=== PATIENT | female | born 1940 | race Caucasian/White ===

== ENCOUNTER → 2017-08-12 11:59 | Outpatient (CLI) | payer MEDICARE, SELFPAY ==
--- NOTE | 2017-08-12 13:41 | NEURO ---
NCS and/or EMG Patient Report Ordering Doctor: Russel Murphy DATE OF SERVICE: 08/12/17 Alyson Crespo is a 77-year-old female presents with chief complaint of burning and tingling around the left ankle. She has a history of left ankle surgery. She refuses testing in the right lower limb, despite it being ordered. She states she is largely asymptomatic on the right side. Electrodiagnostic findings: Left common peroneal nerve demonstrates normal distal latency, amplitude and conduction velocity. Normal left tibial motor response. Normal tibial and peroneal F-wave. H reflex mildly prolonged on the left side. Needle EMG testing reveals no evidence of denervation with normal motor unit action potentials. Electrodiagnostic impression: This is a normal electrodiagnostic study of the left lower limb. No electrodiagnostic evidence for peripheral neuropathy, including tarsal tunnel syndrome. There is no electrodiagnostic evidence for lumbar radiculopathy. If there are any further questions, please do not hesitate to contact me.
== END ==
PROVIDERS: Family Provider Preventive Medicine Occupational Medicine; PCP Preventive Medicine Occupational Medicine; Visit Provider Podiatrist
DX: M79.2 Neuralgia and neuritis, unspecified (principal); M19.072 Primary osteoarthritis, left ankle and foot; M19.071 Primary osteoarthritis, right ankle and foot; M79.672 Pain in left foot
CPT/HCPCS: 95886; 95910

== ENCOUNTER 2018-08-29 21:26 | Emergency (ER) | payer MEDICARE, SELFPAY ==
[2018-08-29 21:26] VITALS: BP 165/100; PULSE 114; RESP 16; TEMP 36.6; O2SAT 98; BMI 31.1
--- NOTE | 2018-08-29 21:53 | ED.VISSUMM ---
- ER Visit Summary Date of Service: 08/29/18 Chief Complaint: Left upper extremity bruising History of Present Illness: The patient is a 78 F who initially noted pain and bruising to her left hand several weeks ago. She was seen by orthopedic hand, but the time she had her appointment to the pain and bruising had resolved. She then developed bruising to her left upper extremity along the upper arm. She was seen by her primary care physician. Labs were obtained and platelet count was normal. She was sent for an ultrasound of her arm but she does not know the results. Patient reports increased bruising and soreness up near her shoulder tonight. She was concerned about a blood clot that was spreading closer to her chest. She denies paresthesias or weakness of her arm. She does have increased pain with certain movements. She denies any known trauma. Physical Examination: Blood pressure on arrival is 165/100, otherwise vitals normal. Patient sitting upright in bed no acute distress. She is alert and talkative. Head and neck examination is normal. Heart is regular rate and rhythm. Lungs sounds are clear. Abdomen is soft and nontender. Left upper extremity examination reveals ecchymosis in a bandlike pattern around the upper arm. There is another area of ecchymosis along the dependent portion of the elbow. She does have muscular tenderness over the upper arm. She has full range of motion. She is strong distal pulses and normal sensation. There is no significant edema. Test Results: [] Emergency Department Course and Treatment: She was rapidly questioned about any trauma or blood pressure cuff that may been placed on that arm. She denies that. I was able to review [facility] records. Patient's hemoglobin was 14.1 and platelet count was 259,000 just 2 days ago. Ultrasound was obtained but was a soft tissue ultrasound of the area of interest. This revealed no evidence of focal fluid collection. I do not see a vascular ultrasound to be performed. Test results were discussed with patient and family. We will write her to come back tomorrow for a vascular ultrasound of the left upper extremity. Javier wrap was applied to the left upper arm. Treatment Plan: [] Disposition: Discharge Impression: Left upper extremity ecchymosis This note was generated with [employer] dictation software. It may contain incorrect words, spelling, and punctuation that were not noted in review of the chart prior to signing ED Disposition - Plan for ED Patient: Disposition: Home or Assisted Living Instructions: ED Contusion Upper Ext Referrals: Matteo Baker DO [Primary Care Provider] - Additional Instructions: You will be called tomorrow morning to come in for a vascular ultrasound of your arm to ensure there are no blood clots in the blood vessels.
[2018-08-29 22:01] VITALS: BP 121/73; PULSE 105; RESP 16; O2SAT 94
== END 2018-08-29 22:18 | disposition home or self-care (01) ==
LOC: ED 22:02
PROVIDERS: Emergency Provider Emergency Medicine; Family Provider Preventive Medicine Occupational Medicine; PCP Preventive Medicine Occupational Medicine
DX: S40.022A Contusion of left upper arm, initial encounter (principal); X58.XXXA Exposure to other specified factors, initial encounter; Y93.9 Activity, unspecified; Y92.9 Unspecified place or not applicable; I10 Essential (primary) hypertension; E03.9 Hypothyroidism, unspecified; Z79.899 Other long term (current) drug therapy
CPT/HCPCS: 99282

== ENCOUNTER → 2018-08-30 11:16 | Outpatient (CLI) | payer MEDICARE, SELFPAY ==
[2018-08-29 21:26] VITALS: BMI 31.1
--- NOTE | 2018-08-30 11:21 | VDUE_ITS ---
Reason For Study: LUE ecchymosis Left Proximal Left jugular vein is spontaneous, widely patent, phasic, with no intraluminal echogenicity noted. Left subclavian vein is spontaneous, widely patent, phasic, with no intraluminal echogenicity noted. Left Arm Left axillary vein is spontaneous, patent, phasic, competent, compressible and demonstrates augmentation. Left brachial vein is compressible. Left cephalic vein is compressible. Left basilic vein is compressible. Left Lower Arm Left radial vein is compressible. Left ulnar vein is compressible. Interpretation Summary No evidence for acute deep venous thrombosis[left] upper extremity with patent and compressible cephalic and basilic veins. Ordering Physician: Rashida Chen Referring Physician: MD Matteo Baker Performed By: Maida Last RVT ?
== END ==
PROVIDERS: Family Provider Preventive Medicine Occupational Medicine; PCP Preventive Medicine Occupational Medicine; Referring Provider Emergency Medicine; Visit Provider Emergency Medicine
DX: S40.022A Contusion of left upper arm, initial encounter (principal); M79.89 Other specified soft tissue disorders
CPT/HCPCS: 93971

== ENCOUNTER 2021-07-10 18:22 | Outpatient (CLI) | payer MEDICARE, SELFPAY ==
[2021-07-10 18:31] VITALS: BP 142/91; PULSE 102; RESP 16; TEMP 36.6; O2SAT 100; BMI 29.2
[2021-07-10] MEDS: 0.9% Saline Lock 10 ML Syringe IV (18:35)
[2021-07-10 19:37] VITALS: BP 140/75; PULSE 77; RESP 16; TEMP 36.9; O2SAT 98
[2021-07-10 20:22] VITALS: BP 169/83; PULSE 79; RESP 16; TEMP 36.9; O2SAT 100
== END 2021-07-10 20:38 | disposition home or self-care (01) ==
LOC: MS3OUT 18:22 → MS3 18:24
PROVIDERS: PCP Preventive Medicine Occupational Medicine; Referring Provider Nurse Practitioner Adult Health; Visit Provider Nurse Practitioner Adult Health
DX: Z23 Encounter for immunization (principal); U07.1 COVID-19
CPT/HCPCS: J7050; M0245; Q0245; A4216

== ENCOUNTER → 2022-01-02 | Outpatient (CLI) | payer MEDICARE, SELFPAY ==
--- NOTE | 2022-01-02 10:38 | ECHOD_ITS ---
Reason For Study: VALVULAR HEART DISEASE Procedure This was a 2D Doppler, Color Flow transthoracic echocardiogram. The exam was of adequate technical quality. Exam performed in department. Left Ventricle Normal LV size. Left ventricular systolic function is normal. The estimated ejection fraction is 65 %. No evidence for diastolic dysfunction. No regional wall motion abnormalities noted. Right Ventricle Normal RV size. Normal systolic function. Atria Normal left atrium. Normal right atrium. No doppler evidence for ASD. Mitral Valve There is no mitral annular calcification. Mild focal mitral valve calcification, bileaflet. Mild (1+) mitral valve insufficiency. Tricuspid Valve Normal tricuspid valve. Mild tricuspid valve insufficiency. Right ventricular systolic pressure estimated to be 29 mmHg. Aortic Valve Trisinus/trileaflet aortic valve. Mild focal aortic valve thickening. Trivial aortic valve insufficiency. Pulmonic Valve The pulmonic valve is not well visualized. Great Vessels Normal sized aortic root. Pericardium/Pleural No pericardial effusion. MMode/2D Measurements & Calculations LVIDd: 3.8 cm IVSd: 0.84 cm Ao root diam: 3.1 cm LVIDs: 2.6 cm LVPWd: 0.90 cm RVDd: 2.7 cm FS: 31.1 % LAV(MOD-bp): 30.1 ml LVAd ap4: 21.5 cm2 SV(MOD-sp4): 29.8 ml LAV(MOD-bp) Indexed: 16.7 ml/m2 LVLd ap4: 7.0 cm LAV(MOD-sp2): 28.6 ml EDV(MOD-sp4): 54.2 ml LAV(MOD-sp4): 29.3 ml EDV(sp4-el): 55.7 ml LVAs ap4: 12.6 cm2 LVLs ap4: 5.9 cm ESV(MOD-sp4): 24.4 ml ESV(sp4-el): 23.0 ml EF(MOD-sp4): 55.0 % EF(sp4-el): 58.7 % SV(sp4-el): 32.7 ml LA A4 area: 13.4 cm2 LA dimension(2D): 3.0 cm RA A4 area: 11.1 cm2 Time Measurements MV dec time: 0.27 sec Doppler Measurements & Calculations MV E max cesar: 52.2 cm/sec Lat Peak E' Cesar: 5.7 cm/sec Med Peak E' Cesar: 5.4 cm/sec MV A max cesar: 89.5 cm/sec E/E' lat: 9.2 E/E' med: 9.7 MV E/A: 0.58 Ao V2 max: 125.6 cm/sec AI max cesar: 432.8 cm/sec LV V1 max: 78.8 cm/sec Ao max P.3 mmHg AI max P.9 mmHg LV V1 max P.5 mmHg AI dec slope: 298.9 cm/sec2 AI P1/2t: 424.0 msec PA V2 max: 99.9 cm/sec TR max cesar: 255.3 cm/sec TR max P.1 mmHg ECHO/Echo Complete Interpretation Summary Left ventricular systolic function is normal. The estimated ejection fraction is 65 %. Mild focal mitral valve calcification, bileaflet. Mild (1+) mitral valve insufficiency. Mild tricuspid valve insufficiency. Mild focal aortic valve thickening. Trivial aortic valve insufficiency. Right ventricular systolic pressure estimated to be 29 mmHg. No evidence for diastolic dysfunction. Ordering Physician: Alessandra Epstein Referring Physician: SHERLY LENTZ Performed By: Isi Schmidt RDCS
== END | disposition home or self-care (01) ==
PROVIDERS: PCP Preventive Medicine Occupational Medicine; Referring Provider Nurse Practitioner Gerontology; Visit Provider Nurse Practitioner Gerontology
DX: I34.0 Nonrheumatic mitral (valve) insufficiency (principal)
CPT/HCPCS: 93306

== ENCOUNTER → 2023-01-21 | Outpatient (CLI) | payer MEDICARE, SELFPAY ==
--- NOTE | 2023-01-21 11:04 | STRESSREP ---
Stress Test Report Pharmacologic myocardial perfusion stress test. 83-year-old lady for preoperative evaluation Resting EKG demonstrates sinus rhythm with a rate of 73 bpm. Resting blood pressure is 130/72 mmHg. 0.4 mg of regadenoson was infused per usual protocol followed by rapid intravenous saline flush injection. Continuous EKG monitoring was performed. The maximum heart rate was 96 bpm which was 70% of max impacted heart rate the maximum workload was 1 metabolic equivalent. At rest there were no ST or T wave changes noted to suggest ischemia and at peak infusion nonspecific ST changes were noted which did not meet the criteria for ischemia. No clinical angina is noted. The final blood pressure was 132/70 mmHg. Myocardial perfusion protocol. 11.8 mCi of technetium 99m sestamibi was injected at rest. 0.4 mg of regadenoson was infused per usual protocol. At peak infusion 34.1 mCi of technetium 99m sestamibi was injected stress images were obtained stress and rest images were reconstructed and compared in the short axis vertical long and horizontal long axis. Gated images were also obtained. Perfusion SPECT analysis: Review of the stress images demonstrate normal uptake of tracer noted in all areas of the myocardium. The resting images similar demonstrated normal uptake of tracer noted in all areas of the myocardium. No areas of reversibility are noted to suggest ischemia and no previous infarct is noted. Gated SPECT analysis: The gated ejection fraction is 65%. Conclusion: Normal pharmacologic myocardial perfusion stress test. Preserved ejection fraction.
== END | disposition home or self-care (01) ==
PROVIDERS: PCP Preventive Medicine Occupational Medicine; Referring Provider Nurse Practitioner Gerontology; Visit Provider Nurse Practitioner Gerontology
DX: Z01.810 Encounter for preprocedural cardiovascular examination (principal); R94.31 Abnormal electrocardiogram [ECG] [EKG]; I34.0 Nonrheumatic mitral (valve) insufficiency
CPT/HCPCS: 78452; 93017; A9500; A4216; J2785